=== PATIENT | male | born 1990 | race African-American/Black ===

== ENCOUNTER 2019-12-15 18:30 | Emergency (ER) | payer OTHER ==
[~2019-12-15] VITALS: Ht 177.8 cm; Wt 74.4 kg
[2019-12-15 18:34] VITALS: Ht 177.8 cm; Wt 74.4 kg
[2019-12-15 19:24] VITALS: BP 144/85
== END 2019-12-15 19:24 | disposition home or self-care (01) ==
LOC: ED 18:30
DX: J03.90 Acute tonsillitis, unspecified (principal); H10.9 Unspecified conjunctivitis